=== PATIENT | female | born 1955 | race Caucasian/White ===

== ENCOUNTER → 2016-12-28 | Outpatient (CLI) | payer MEDICAID ==
--- NOTE | 2016-12-28 14:42 | RADIOLOGY REPORT PS360 ---
BONE DENSITOMETRY(HIP:LT SPINE HISTORY: POST-MENOPAUSAL ORDERING PHYSICIAN: Dimas Singh MD PATIENT AGE: 61 years COMPARISON: None FINDINGS: The BMD measured at the right femoral neck is 0.701 g/cm squared with a T score of -2.4. This is considered Osteopenic according to the World Health Organization criteria. Fracture risk is Moderate. Treatment is advised. IMPRESSION: Osteopenia with moderate fracture risk. Recommend follow-up exam December 2018
== END ==
LOC: RAD 12-04 10:30
DX: Z78.0 Asymptomatic menopausal state (principal)